=== PATIENT | female | born 1995 | race Caucasian/White ===

== ENCOUNTER 2018-10-15 16:36 | Emergency (ER) | payer BC, OTHER ==
[~2018-10-15] VITALS: Ht 160 cm; Wt 90.7 kg
--- OUTSIDE RECORDS SUMMARY | 2018-10-15 16:44 | XMS REPORT | Continuity of Care Document ---
Author Author [facility] Organization [facility] Address [facility] [address] [place] [address] Phone Unavailable Support Name Relationship Address Phone Leroy Bright MD Caregiver [address] [place] [address] Unavailable Sol Fan M.D. Caregiver [address] [facility] [address] [place] [address] SHOSHANA COWAN Next Of Kin Unknown Insurance Providers Payer Name Policy Number Subscriber Name Relationship Bc/Bs [place] [employer] [id number] Heather Pham 21 Child Advance Directives Directive Response Recorded Date/Time Do you have an Advanced Directive? No 11/27/00 10:40am Advance Directives No 05/18/14 3:48pm Living Will No 05/18/14 3:48pm Health Care Proxy No 08/26/14 9:25am Power of Pen Tender for Health Care No 05/18/14 3:48pm Organ, Tissue, or Eye Donor No 05/18/14 3:48pm Do you have a signed organ donor card? No 11/27/00 10:40am Problems No problem information available. Medications Current Home Medications Medication Dose Units Route Directions Days/Qty Instructions Start Date [Hydrocodone] Mg Oral Daily As Needed UNKNOWN DOSAGE PER MOTHER 05/18/14 Oxycodone Hcl/Acetaminophen* 1 Tab 1 Ea Oral Every 4-6 Hrs As Needed Pain 15 05/24/14 Social History Social History Problem Response Recorded Date/Time Smoking Status Never smoker 05/18/2014 3:48pm Query Response Start Date Stop Date Smoking Status Never smoker Hospital Discharge Instructions Current inpatient/outpatient. Discharge instructions are currently unavailable. Plan of Care Prescriptions Functional Status No functional status results. Allergies, Adverse Reactions, Alerts No known allergies. Immunizations Name Given Type Hx Influenza Vaccination Y FALL 2013. Historical Hx Pneumococcal Vaccination No Historical Vital Signs Acute Vital Signs Vital Response Date/Time Pain Intensity 0 07/07/2014 8:55am Pain Location Body Site Modifier 08/17/2014 1:00pm Results No known relevant diagnostic tests, laboratory data and/or discharge summary. Procedures Procedure Status Date Provider(s) X-ray of left knee, three views Active 07/04/14 Leroy Bright MD X-ray of both knees with standing anteroposterior view Active 07/04/14 Leroy Bright MD X-ray of left knee, three views Active 08/26/14 Leroy Bright MD X-ray of both knees with standing anteroposterior view Active 08/26/14 Leroy Bright MD Encounters Encounter Location Arrival/Admit Date Discharge/Depart Date Attending Provider Registered [facility] [place] 08/26/14 9:26am Leroy Bright MD Discharged Recur[facility] [place] 07/07/14 6:17am 09/05/14 3:00pm Leroy Bright MD Registered [facility] [place] 07/04/14 10:06am Leroy Bright MD
--- OUTSIDE RECORDS SUMMARY | 2018-10-15 16:44 | XMS REPORT ---
Author Author Deepa Damon [facility] Address [address] [place], [place] [id number] Care Team Providers Care Dispersion Mixer Name Role Phone Deepa Damon PCP Unavailable Allergies and Adverse Reactions Name Reaction Notes SULFA (SULFONAMIDE ANTIBIOTICS) Plan of Treatment Not available. Medications Active Name Start Date Estimated Completion Date SIG Comments Cipro 500 mg oral tablet take 1 tablet (500 mg) by oral route 2 times per day Problem List Not available. Vital Signs Date Time BP-Sys(mm[Hg] BP-Madison(mm[Hg]) HR(bpm) RR(rpm) Temp WT HT HC BMI BSA BMI Percentile O2 Sat(%) 08/24/2015 10:14:00 AM 102 mmHg 70 mmHg 98 bpm 20 rpm 98.3 F 172 lbs 63 in 30.47 kg/m2 1.86 m2 95 % 97 % Social History Name Description Comments Tobacco Never smoker Alcohol Never History of Procedures Date Ordered Description Order Status 08/24/2015 12:00 AM CULTURE SCREEN ONLY Returned 08/27/2015 9:40 AM STREP A ASSAY W/OPTIC Reviewed Results Summary Data and Description Results 08/27/2015 9:40 AM STREPTOCOCCUS, GROUP A CULTURE Negative History Of Immunizations Not available. History of Past Illness Name Date of Onset Comments No significant medical history Sore throat Aug 24 2015 10:16AM Viral pharyngitis Aug 24 2015 10:16AM Payers Insurance Name Company Name Plan Name Plan Number Policy Number Policy Group Number Start Date BCBS [facility] [id number] May History of Encounters Visit Date Visit Type Provider 08/24/2015 Office visit Deepa Damon ELECTORAL OFFICER
--- OUTSIDE RECORDS SUMMARY | 2018-10-15 16:44 | XMS REPORT ---
Author Author Deepa Damon [facility] Address [address] [place], [place] [id number] Care Team Providers Care Clerical Coordinator Name Role Phone Deepa Damon PCP Unavailable Allergies and Adverse Reactions Name Reaction Notes SULFA (SULFONAMIDE ANTIBIOTICS) Plan of Treatment Not available. Medications Discontinued Name Start Date Discontinued Date SIG Comments Cipro 500 mg oral tablet 09/21/2015 take 1 tablet (500 mg) by oral route 2 times per day Problem List Not available. Vital Signs Date Time BP-Sys(mm[Hg] BP-Madison(mm[Hg]) HR(bpm) RR(rpm) Temp WT HT HC BMI BSA BMI Percentile O2 Sat(%) 09/21/2015 2:33:00 PM 117 mmHg 73 mmHg 80 bpm 18 rpm 97.7 F 175.4 lbs 64 in 30.11 kg/m2 1.90 m2 94.6 % 98 % 08/24/2015 10:14:00 AM 102 mmHg 70 mmHg 98 bpm 20 rpm 98.3 F 172 lbs 63 in 30.4681 kg/m 1.8622 m 95 % 97 % Social History Name [...] 10:16AM Viral pharyngitis Aug 24 2015 10:16AM Sports Physical Sep 21 2015 2:35PM Payers Insurance Name Company Name Plan Name Plan Number Policy Number Policy Group Number [id number] May History of Encounters Visit Date Visit Type Provider 09/21/2015 Office visit Deepa Damon ORTHOTIST/PROSTHETIST 08/24/2015 Office visit Deepa Damon ORTHOTIST/PROSTHETIST
--- OUTSIDE RECORDS SUMMARY | 2018-10-15 16:45 | XMS REPORT | Continuity of Care Document ---
Author Organization Unknown Address Unknown Phone Unavailable Allergies Active Description Code Type Severity Reaction Onset Reported/Identified Relationship to Patient Clinical Status Yes SULFA Drug Allergy N/A N/A Yes SULFA Drug Allergy N/A N/A Medications Medication Packaging Start Date Stop Date Route Dosage Sig NORCO ORAL 05/11/2014 ORAL 1515 every 6 hours Problems There is no data. Procedures There is no data. Results There is no data. Encounters ACCT No. Visit Date/Time Discharge Status Pt. Type Provider Facility Loc./Unit Complaint [id number] 09/16/2017 12:23:25 09/16/2017 23:59:59 CLS Outpatient Talisha Vaughn [id number] 09/21/2015 15:15:56 09/21/2015 23:59:59 CLS Outpatient Deepa Damon [id number] 09/13/2014 06:07:37 09/13/2014 06:07:37 DIS Outpatient [id number] 10/26/2015 18:30:00 10/26/2015 18:30:00 DIS Outpatient [facility]
--- NOTE | 2018-10-15 16:53 | NUR ---
pt here with " room mate". pt alert gcs 15. approx 20 min. bell captain here pt cut self right middle finger while cutting twine. pt has a partial thickness minimal bleeding with direct pressur laceration right hand middle finger distal knuckle fat pad. last tetanus unk. per pt. done jacey pt at 1657.
--- NOTE | 2018-10-15 17:27 | ED Upper Extremity ---
General Chief Complaint: Laceration Stated Complaint: FINGER LACERATION Nursing Triage Note: right finger lac. Nursing Sepsis Screen: No Definite Risk Source: patient Exam Limitations: no limitations History of Present Illness Date Seen by Provider: Oct 15, 2018 Time Seen by Provider: 17:25 Initial Comments To ER with reports of a laceration to the radial side of the distal phalanx right middle finger. She is trying to cut some wine tonight slipped. 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 Onset: just prior to arrival Severity: moderate Pain/Injury Location: right 3rd finger Modifying Factors: Worse With Movement Allergies and Home Medications Patient Home Medication List Home Medication List Reviewed: Yes Review of Systems Constitutional: see HPI EENTM: see HPI Respiratory: no symptoms reported Cardiovascular: no symptoms reported Genitourinary: no symptoms reported Musculoskeletal: see HPI Skin: no symptoms reported Psychiatric/Neurological: No Symptoms Reported Past [id number] Hx Patient Social History Alcohol Use: Denies Use Recreational Drug Use: No Smoking Status: Never a Smoker Recent Foreign Travel: No Contact w/Someone Who Travel: No Recent Infectious Disease Expo: No Physical Abuse: No Sexual Abuse: No Immunizations Up To Date Tetanus Booster (TDap): Unknown Physical Exam Vital Signs Vital Signs - First Documented 10/15/18 16:53 Temp 98.0 Pulse 68 Resp 16 B/P (MAP) 120/78 (92) Pulse Ox 98 O2 Delivery Room Air Capillary Refill : Less Than 3 Seconds Height, Weight, BMI Height: 5'3.00" Weight: 200lbs. oz. 90.494005sa; BMI Method:Stated General Appearance: WD/WN, no apparent distress HEENT: PERRL/EOMI Respiratory: no respiratory distress, no accessory muscle use Shoulder: normal inspection, non-tender Elbow/Forearm: normal inspection, non-tender Hand: Right, laceration (1 cm V-shaped laceration to the radial side distal phalanx right middle finger with minimal active bleeding.) Procedures/Interventions Wound Location: Upper Extremities Wound Length (cm): 1 Wound's Depth, Shape: linear Wound Explored: clean Other Closure Supply: Wound Adhesive Progress/Results/Core Measures Results/Orders Vital Signs/I&O 10/15/18 16:53 Temp 98.0 Pulse 68 Resp 16 B/P (MAP) 120/78 (92) Pulse Ox 98 O2 Delivery Room Air Blood Pressure Mean: 92 Departure Impression Primary Impression: Finger laceration Qualified Codes: S61.212A - Laceration without foreign body of right middle finger without damage to nail, initial encounter Disposition: 01 HOME, SELF-CARE Condition: Stable Departure-Patient Inst. Referrals: NO,LOCAL PHYSICIAN (PCP/Family) Primary Care Physician Patient Instructions: Laceration Repair With Glue (DC) Add. Discharge Instructions: 1. You can shower allowing water run over the starting tonight but do not soak it in water such as a dish sink, hot tub bath tub or swimming pool or [place] until the glue falls off in about 5 days. Return to ER for any sign of infection such as redness or swelling. Do not apply any petroleum-based products like Vaseline, Neosporin or bacitracin as this will dissolve the glue prematurely. All discharge instructions reviewed with patient and/or family. Voiced understanding. HANNAH CARDOSO APRN Oct 15, 2018 17:27
--- NOTE | 2018-10-15 17:31 | NUR ---
did wound glue and a finger splint.
[2018-10-15 17:37] VITALS: BP 120/78
--- NOTE | 2018-10-15 17:37 | NUR ---
d/c instructions to pt. told to read all papers. no scripts given. pt left ambulatory with adult female. pt knows f/u. i went over the handtyped by information on the chart. pt had no iv.
== END 2018-10-15 17:37 | disposition home or self-care (01) ==
LOC: ER 16:37
DX: S61.212A Laceration without foreign body of right middle finger without damage to nail, initial encounter (principal); W26.8XXA Contact with other sharp object(s), not elsewhere classified, initial encounter
CPT/HCPCS: 12001

== ENCOUNTER → 2020-04-25 | Outpatient (CLI) | payer BC, OTHER ==
--- NOTE | 2020-04-25 12:55 | Diagnostic Imaging Report ---
INDICATION: anatomy survey TECHNIQUE: Multiple real-time grayscale images were obtained over the gravid uterus. COMPARISON: None FINDINGS: There is a single live intrauterine in the cephalic position. The placenta is anterior in location, and there is no evidence of previa or placental abruption. The heart rate is 153 beats per minute. The SHEKHAR measures 14.76 cm. Cervix measures approximately 3.8 cm. anatomy survey was performed and the following structures are visualized and normal: Stomach, four-chamber heart, intracranial contents, spine, umbilical cord insertion, three-vessel cord, lips/nose and all 4 extremities. There is mild prominence of the renal pelves on both sides. Due to advanced gestational age, the maternal adnexa are suboptimally evaluated. Biometrical measurements are as follows: Biparietal 4.45 cm, age 19 weeks 4 days. Head circumference 16.75 cm, age 19 weeks 3 days. Abdominal circumference 13.71 cm, age 19 weeks 1 days. Femur length 3.11 cm, age 19 weeks 5 days. Sonographic estimate age: 19 weeks 4 days. Sonographic estimated date of delivery: 09/15/2020. Estimated Weight: 290 gm (+/- 42 gm). LMP percentile: 16%. heart rate: 153 beats per minute. number: 1 of 1. IMPRESSION: 1. Single live intrauterine with estimated gestational age of 19 weeks and 4 days. 2. anatomy survey is normal with the exception of mildly dilated renal pelves on both sides. This could be physiologic. Consider attention on follow-up. 3. Normal SHEKHAR. Dictated by: Dictated on workstation # [id number]
== END ==
LOC: RAD 09:43
PROVIDERS: ATTEND Obstetrics & Gynecology
DX: Z34.92 Encounter for supervision of normal pregnancy, unspecified, second trimester (principal); Z3A.19 19 weeks gestation of pregnancy
CPT/HCPCS: 76805

== ENCOUNTER 2020-09-04 18:01 | Outpatient (CLI) | payer OTHER ==
[~2020-09-04] VITALS: Ht 160 cm; Wt 107.2 kg
[~2020-09-04 18:01] MED LIST: ACYC400T21 PO; PREN-142 PO
[2020-09-04 18:15] VITALS: BP 136/82
[2020-09-04 19:41] LABS: BILIRUBIN,URINE NEGATIVE (NEGATIVE); CLARITY,URINE CLEAR; COLOR,URINE YELLOW; GLUCOSE, URINE (UA) NEGATIVE (NEGATIVE); KETONES,URINE NEGATIVE (NEGATIVE); LEUKOCYTE ESTERASE ,URINE TRACE (NEGATIVE); NITRITE,URINE NEGATIVE (NEGATIVE); PROTEIN,URINE NEGATIVE (NEGATIVE)
[2020-09-04 19:49] LABS: BACTERIA,URINE TRACE /HPF; WBC,URINE 0-2 /HPF
[2020-09-04 19:50] LABS: AMORPHOUS SEDIMENT,UR FEW AMOR PHOSPHATE /LPF
--- NOTE | 2020-09-06 17:29 | Physician Query-Final Dx ---
MELANIE COLLIER 09/06/20 1729: Final Diagnosis Give Final Diagnosis Please give Final Diagnosis RIYA ALCALA DO 09/07/20 0730: Final Diagnosis Give Final Diagnosis Irregular Uterine contractions 38 week IUP UTI MELANIE COLLIER Sep 06, 2020 17:29 RIYA ALCALA DO Sep 07, 2020 07:30
== END 2020-09-04 20:10 | disposition home or self-care (01) ==
LOC: WSo 18:01 → LDRP 18:06 → WSo 20:10
PROVIDERS: ATTEND Obstetrics & Gynecology
DX: O62.9 Abnormality of forces of labor, unspecified (principal); Z3A.00 Weeks of gestation of pregnancy not specified
CPT/HCPCS: 81000; G0463; 99213

== ENCOUNTER 2020-09-07 14:34 | Inpatient (IN) | payer OTHER, MEDICAID ==
[2020-09-07] VITALS (41 sets, daily range): BP systolic 117–156; BP diastolic 57–89
[2020-09-07] MEDS ORDERED: AMPICILLIN FOR IV USE 2,000 MG in WATER (STERILE) FOR INJECTION 14.8 ML IV SCH (15:00)
[2020-09-07] MEDS ORDERED: D5 LR IV SOLUTION 1,000 ML IV ONE (15:00)
[2020-09-07] MEDS ORDERED: fentaNYL 2 mcg/ml BUPIVA 0.125 100 ML ONE (15:06)
[2020-09-07] MEDS ORDERED: OXYTOCIN PRE-MIX DRIP 500 ML IV SCH ×2 (15:15→21:15)
[2020-09-07] MEDS ORDERED: D5 LR IV SOLUTION 1,000 ML IV SCH (15:15)
[2020-09-07 15:26] LABS: BASOPHILS % (AUTO) 0 % (0-10); EOSINOPHILS % (AUTO) 0 % (0-10); HEMATOCRIT 38 % (35-52); LYMPHOCYTES # (AUTO) 1.6 10^3/uL (1.0-4.0); LYMPHOCYTES % (AUTO) 12 % (12-44); MEAN CORPUSCULAR HEMOGLOBIN 34 pg (25-34); MEAN CORPUSCULAR HGB CONC 34 g/dL (32-36); MEAN CORPUSCULAR VOLUME 100 fL (80-99); MEAN PLATELET VOLUME 9.4 fL (9.0-12.2); MONOCYTES # (AUTO) 1.1 10^3/uL (0.0-1.0); MONOCYTES % (AUTO) 8 % (0-12); NEUTROPHILS % (AUTO) 80 % (42-75); PLATELET COUNT 321 10^3/uL (130-400); WHITE BLOOD COUNT 13.7 10^3/uL (4.3-11.0)
[2020-09-07] MEDS ORDERED: fentaNYL INJ 100 MCG/2 ML AMP ONE (15:38)
[2020-09-07] MEDS ORDERED: BUPIVACAINE 0.25% 30 ML (SENSORCAINE) VIAL ONE (15:38)
--- NOTE | 2020-09-07 15:50 | History & Physical-OB ---
OB - Chief Complaint & HPI Date/Time Date of Admission: Date of Admission: 09/07/2020 Date seen by a Provider: Sep 07, 2020 Time Seen by a Provider: 15:47 Chief Complaint/History OB-Reason for Admission/Chief: Onset of Labor Hx : 1 Hx Para: 0 Expected Date of Delivery: Sep 12, 2020 Gestational Age in Weeks: 39 Gestational Age in Days: 2 Admission Nurse Assessment Rev: Yes History of Labs A neg Antibody neg RNI RPR NR HBsAg NR HIV NR GC neg GBS pos HSV pos Allergies and Home Medications Allergies Coded Allergies: Sulfa (Sulfonamide Antibiotics) (Verified Allergy, Mild, none, 08/21/20) patient family members with allergy, told pt to not take it Home Medications Acyclovir 400 Mg Tablet, 500 MG PO BID, (Reported) Patient Home Medication List Home Medication List Reviewed: Yes OB - History Hx of Present Care: Yes Ultrasounds: Normal mid trimester US Obstetrical Complications: None Medical Complications: None Patient Past Medical History HSV Social History/Family History 2nd Hand Smoke Exposure: No Immunizations Tetanus Booster (TDap): Unknown OB - Admission Exam Physical Exam HEENT: NCAT Heart: Rhythm Normal Lungs: Clear Abdomen: Gravid Extremities: Normal Reflexes: Normal Cervical Dilatation: 4cm Effacement: 75% Station: -2 Membranes: Ruptured Amniotic Fluid: Clear Heart Rate: 130's Accelerations: Accelerations Present Decelerations: No Decelerations Short Term Variability: Present Fci Variability: Average (6-25) Contractions on Admission: < 5 Minutes Apart Intensity: Mild Labs Laboratory Tests Test 09/07/20 15:15 Range/Units White Blood Count 13.7 H 4.3-11.0 10^3/uL Red Blood Count 3.83 3.80-5.11 10^6/uL Hemoglobin 13.0 11.5-16.0 g/dL Hematocrit 38 35-52 % Mean Corpuscular Volume 100 H 80-99 fL Mean Corpuscular Hemoglobin 34 25-34 pg Mean Corpuscular Hemoglobin Concent 34 32-36 g/dL Red Cell Distribution Width 12.0 10.0-14.5 % Platelet Count 321 130-400 10^3/uL Mean Platelet Volume 9.4 9.0-12.2 fL Immature Granulocyte % (Auto) 0 % Neutrophils (%) (Auto) 80 H 42-75 % Lymphocytes (%) (Auto) 12 12-44 % Monocytes (%) (Auto) 8 0-12 % Eosinophils (%) (Auto) 0 0-10 % Basophils (%) (Auto) 0 0-10 % Neutrophils # (Auto) 11.0 H 1.8-7.8 10^3/uL Lymphocytes # (Auto) 1.6 1.0-4.0 10^3/uL Monocytes # (Auto) 1.1 H 0.0-1.0 10^3/uL Eosinophils # (Auto) 0.0 0.0-0.3 10^3/uL Basophils # (Auto) 0.0 0.0-0.1 10^3/uL Immature Granulocyte # (Auto) 0.1 0.0-0.1 10^3/uL Percent Immature Platelet Fraction 2.1 0.0-7.6 % OB - Assessment/Plan/Diagnosis Assessment Assessment: active labor Admission Dx 25 yo @ 39 weeks Active labor SROM GBS pos HSV- on prophylaxis, no lesions Admission Status: Inpatient Order (span 2 midnights) Reason for Inpatient Admission: Active labor at 39 weeks Plan Plan: Expectant Management RIYA ALCALA DO Sep 07, 2020 15:50
[2020-09-07] MEDS ORDERED: LACTATED RINGERS 1,000 ML IV ONE ×2 (16:15)
[2020-09-07] MEDS ORDERED: EPIDURAL (fentaNYL 2 MCG/ML BUPIVA 0.125%)100 ML BAG EPI PRN (16:15)
[2020-09-07] MEDS ORDERED: NALOXONE 0.4 MG/ML 1 ML (NARCAN) VIAL IV PRN (16:15)
[2020-09-07] MEDS ORDERED: ONDANSETRON 4 MG/2 ML (SDV) Z0FRAN IV PRN (16:15)
[2020-09-07] MEDS ORDERED: fentaNYL INJ 100 MCG/2 ML AMP INJ ONE (16:15)
[2020-09-07 17:06] LABS: BILIRUBIN,URINE NEGATIVE (NEGATIVE); CLARITY,URINE SL CLOUDY; COLOR,URINE YELLOW; GLUCOSE, URINE (UA) NEGATIVE (NEGATIVE); KETONES,URINE NEGATIVE (NEGATIVE); LEUKOCYTE ESTERASE ,URINE NEGATIVE (NEGATIVE); NITRITE,URINE NEGATIVE (NEGATIVE); PROTEIN,URINE NEGATIVE (NEGATIVE)
[2020-09-07 17:15] LABS: BACTERIA,URINE FEW /HPF; WBC,URINE RARE /HPF
[2020-09-07 17:16] LABS: AMORPHOUS SEDIMENT,UR MOD AMOR URATES /LPF
[2020-09-07] MEDS ORDERED: AMPICILLIN FOR IV USE 1,000 MG in WATER (STERILE) FOR INJECTION 7.4 ML IV SCH (19:15)
[2020-09-07] MEDS ORDERED: WITCH HAZEL(TUCKS) 40 EA JAR TOP PRN (21:15)
[2020-09-07] MEDS ORDERED: BENZOCAINE/MENTHOL (DERMOPLAST) 56 ML CAN TP PRN (21:15)
[2020-09-07] MEDS ORDERED: HYDROcodone/APAP 5 MG/325 MG (LORTAB) TAB PO PRN (21:15)
[2020-09-07] MEDS ORDERED: TETANUS,DIPTH,PERTUSS P/F (BOOSTRIX) 0.5 ML VIAL IM ONE (21:15)
[2020-09-07] MEDS ORDERED: DIBUCAINE 1% OINTMENT 30 GM TUBE TOP PRN (21:15)
[2020-09-07] MEDS ORDERED: MEASLES,MUMPS,RUBELLA 1 EA INJ SQ ONE (21:15)
--- NOTE | 2020-09-07 21:17 | OB Labor & Delivery Record ---
L&D History Date of Service Date of Service: Sep 07, 2020 History Expected Date of Delivery: Sep 12, 2020 Gestational Age in Weeks: 39 Hx : 1 Hx Para: 0 Complications Events: Routine care Operative Indications (Cesarea: N/A-Vaginal Delivery Intrapartal Events: None L&D Stage1 Stage One Onset of Labor - Date: Sep 07, 2020 Monitors and Tracing Monitor Mode: External Heart Rate: 165 Monitor Accelerations: Uniform Monitor Decelerations: Variable Instrument Technician Variability: Average (6-10) Short Term Variability: Present Presentation: Vertex Vital Signs VS - Last 72 Hours, by Label 09/07/20 09/07/20 09/07/20 09/07/20 15:16 15:45 15:49 15:52 Temp 35.4 Pulse 71 95 90 94 Resp 18 18 18 18 B/P (MAP) 132/84 (100) 147/83 (104) 145/76 (99) 138/76 (96) Pulse Ox 100 97 O2 Delivery Room Air Room Air Room Air Room Air 09/07/20 09/07/20 09/07/20 09/07/20 15:55 15:58 16:01 16:04 Pulse 76 82 85 81 Resp 18 18 18 18 B/P (MAP) 136/67 (90) 144/76 (98) 126/71 (89) 120/67 (84) Pulse Ox 99 99 99 O2 Delivery Room Air Room Air Room Air Room Air 09/07/20 09/07/20 09/07/20 09/07/20 16:07 16:10 16:21 16:25 Pulse 89 88 82 82 Resp 18 18 18 18 B/P (MAP) 123/69 (87) 126/77 (93) 122/72 (89) 122/78 (93) Pulse Ox 97 99 99 97 O2 Delivery Room Air Room Air Room Air Room Air 09/07/20 09/07/20 09/07/20 09/07/20 16:31 16:36 16:42 16:46 Pulse 78 90 92 92 Resp 18 18 18 18 B/P (MAP) 126/76 (93) 121/72 (88) 129/80 (96) 136/83 (100) Pulse Ox 99 92 99 99 O2 Delivery Room Air Room Air Room Air Room Air 6/24/09/07/20 09/07/20 09/07/20 16:54 16:56 17:01 17:20 Temp 35.6 Pulse 83 94 87 87 Resp 18 18 18 18 B/P (MAP) 125/66 (85) 122/70 (87) 118/68 (85) 129/74 (92) Pulse Ox 99 99 99 O2 Delivery Room Air Room Air Room Air Room Air 09/07/20 09/07/20 09/07/20 09/07/20 17:35 17:50 18:04 18:20 Temp 35.8 Pulse 86 95 90 87 Resp 18 18 18 18 B/P (MAP) 120/72 (88) 127/80 (96) 122/73 (89) 117/69 (85) Pulse Ox 99 99 99 99 O2 Delivery Room Air Room Air Room Air Room Air 09/07/20 09/07/20 09/07/20 18:34 18:50 19:04 Pulse 95 86 86 Resp 18 18 18 B/P (MAP) 128/75 (92) 134/82 (99) 130/75 (93) Pulse Ox 100 99 99 O2 Delivery Room Air Room Air Room Air Rupture of Membranes Spontaneous Ruture of Membrane: Yes Amniotic Membrane Rupture Time: 1300 Amniotic Membrane Fluid Desc.: Clear Vaginal Bleeding Description: Normal Show Induction/Anesthesia Epidural Cath Placement - Time: 1551 Progress/Notes Patient admitted in active labor, GBS pos started on antibiotics. She was ruptured SROM on admission. After epidural obtained, she progressed to complete and + 1 station and felt urge to push, she had prolonged tachycardia at that point. L&D Stage2 Stage Two Stage II Date: Sep 07, 2020 Monitors and Tracing Monitor Mode: External Heart Rate: 165 Monitor Accelerations: Uniform Monitor Decelerations: Variable Intermediate Variability: Average (6-10) Short Term Variability: Present Position: Right Occiput Anterior Presentation: Vertex Cord Descript/Complications Cord Vessel Description: 3 Vessels Complications compound presentation with nuchal x 1, tight and had to deliver through nuchal. Delivery Type Delivery Method: Spontaneous Vaginal Anterior Shoulder: Left Episiotomy/Perineal Laceration Laceraction(s)/Extensions: Yes Episiotomy Description: Periurethral Extnsion/lac, Vaginal Extension/lac Degree (describe repair) 1st degree vaginal and periurethral lacerations repaired using 3-0 rapide in usual fashion. Condition of Infant Delivery 1 minute Comment: 8 5 minute Comment: 9 Notes Live female infant weight pending. Condition of Infant Condition of : Living Exam: No Observed Abnormalities Resuscitation Resuscitation: N/A - Spontaneous Resp L&D Stage3 Stage Three Stage III Date: Sep 07, 2020 Pictocin Pitocin Administration mu/min: 4 Pitocin ml/hr: 4 Pitocin Administration Comment: 30 mu wide open at delivery of placenta Placenta Delivery Placenta Delivery: Spontaneous Delivery Summary Summary Estimated blood loss (mL): 350 Attending at delivery: Riya Alcala DO Condition of Delivery Examined: Cervix Examined, Uterus Explored Post Hemorrhage: No Condition of Mother stable Condition of Infant (s) stable RIYA ALCALA DO Sep 07, 2020 21:17
--- NOTE | 2020-09-07 21:19 | Discharge Inst-Women's Service ---
Discharge Inst-Women's Serv Depart Medication/Instructions New, Converted or Re-Newed RX: RX on Chart Final Diagnosis PPD 2 NVD Problems Reviewed?: Yes Consults/Follow Up Additional Follow Up: Yes Orders/Referrals Dr. Alcala in 6 weeks Activity Activity: Activity as Tolerated Driving Instructions: No Driving for 1 Week NO SMOKING: NO SMOKING Nothing Inside Vagina: No Douching, No Springer, No Tampons Diet Discharge Diet: No Restrictions Symptoms to Report to : Bleeding Excessive, Pain Increased, Fever Over 101 Degrees F, Vaginal Bleeding Increase, Questions/Concerns For Any Problems or Questions: Contact Your Physician RIYA ALCALA DO Sep 07, 2020 21:19
[2020-09-07] MEDS ORDERED: DIBU30OI TOP (21:20)
[2020-09-07] MEDS ORDERED: ACHD5005 PO (21:20)
[2020-09-07] MEDS ORDERED: BENZ78AE5 TP (21:20)
[2020-09-07] MEDS ORDERED: DCS100C PO (21:20)
[2020-09-07] MEDS ORDERED: IBUP-844 PO (21:20)
[2020-09-08] MEDS: IBUPROFEN 600 MG (MOTRIN) TAB PO SCH ×4 (01:28→20:17)
[2020-09-08 02:30] VITALS: BP 113/59
[2020-09-08 05:51] LABS: BASOPHILS # (AUTO) 0.1 10^3/uL (0.0-0.1); BASOPHILS % (AUTO) 0 % (0-10); EOSINOPHILS % (AUTO) 0 % (0-10); HEMATOCRIT 34 % (35-52); HEMOGLOBIN 12.1 g/dL (11.5-16.0); LYMPHOCYTES # (AUTO) 1.7 10^3/uL (1.0-4.0); LYMPHOCYTES % (AUTO) 7 % (12-44); MEAN CORPUSCULAR HEMOGLOBIN 35 pg (25-34); MEAN CORPUSCULAR HGB CONC 36 g/dL (32-36); MEAN CORPUSCULAR VOLUME 99 fL (80-99); MEAN PLATELET VOLUME 9.3 fL (9.0-12.2); MONOCYTES # (AUTO) 2.3 10^3/uL (0.0-1.0); MONOCYTES % (AUTO) 9 % (0-12); NEUTROPHILS # (AUTO) 21.2 10^3/uL (1.8-7.8); NEUTROPHILS % (AUTO) 83 % (42-75); PLATELET COUNT 259 10^3/uL (130-400); WHITE BLOOD COUNT 25.5 10^3/uL (4.3-11.0)
[2020-09-08 06:04] VITALS: BP 100/57
[2020-09-08 06:37] LABS: BAND NEUTROPHILS 4 %; LYMPHOCYTES % (MANUAL) 6 %; MONOCYTES % (MANUAL) 13 %; NEUTROPHILS % (MANUAL) 77 %; RBC MORPH NORMAL
[2020-09-08 08:22] VITALS: BP 109/63
[2020-09-08] MEDS: PRENATAL VITAMIN 1 EA TAB PO SCH (08:22)
[2020-09-08] MEDS: FERROUS SULF 325 MG (IRON) TAB PO SCH (08:23)
[2020-09-08] MEDS: DOCUSATE SODIUM 100 MG (COLACE) CAP PO SCH ×2 (08:23→20:17)
--- NOTE | 2020-09-08 08:26 | Postpartum Progress Note ---
Note Note Day # 1 Subjective: Patient is without complaints. Ambulating, voiding. Tolerating a regular diet without nausea or vomiting. Normal lochia. Pain is well controlled with oral pain medications. Objective: Physical Exam: General - Alert and oriented, no apparent distress Abdomen - Soft, appropriately tender to palpation, non-distended, fundus firm at umbilicus Extremities - no edema, negative Vivian's bilaterally Assessment: PPD 1 NVD Plan: Routine care. Encourage breast feeding. Encourage ambulation. Ferrous sulfate supplementation. Plan for discharge tomorrow Vitals - Labs Vital Signs - I&O Vital Signs Date Time Temp Pulse Resp B/P (MAP) Pulse Ox O2 Delivery O2 Flow Rate FiO2 09/08/20 08:22 36.5 88 18 109/63 (78) 98 Room Air 09/08/20 06:04 36.6 88 18 100/57 (71) 98 Room Air 09/08/20 02:30 36.7 112 18 113/59 (77) 98 Room Air 09/07/20 22:49 122 18 132/57 (82) Room Air 09/07/20 22:18 120 18 125/66 (85) Room Air 09/07/20 22:03 126 18 120/58 (78) Room Air 09/07/20 22:00 122 18 124/59 (80) Room Air 09/07/20 21:45 36.7 122 18 125/59 (81) Room Air 09/07/20 21:30 37.6 126 18 131/89 (103) Room Air 09/07/20 21:15 117 18 142/67 (92) Room Air 09/07/20 21:00 125 18 148/58 (88) Room Air 09/07/20 20:47 Room Air 09/07/20 20:45 116 18 156/86 (109) Room Air 09/07/20 20:30 96 18 136/75 (95) 100 Non Rebreather 15.00 09/07/20 20:15 93 18 119/72 (88) Room Air 09/07/20 20:00 96 18 117/77 (90) Room Air 09/07/20 19:45 102 18 137/76 (96) 99 Room Air 09/07/20 19:30 37.8 86 18 129/71 (90) 99 Room Air 6/24/21 19:04 86 18 130/75 (93) 99 Room Air 09/07/20 18:50 86 18 134/82 (99) 99 Room Air 09/07/20 18:34 95 18 128/75 (92) 100 Room Air 09/07/20 18:20 87 18 117/69 (85) 99 Room Air 09/07/20 18:04 35.8 90 18 122/73 (89) 99 Room Air 09/07/20 17:50 95 18 127/80 (96) 99 Room Air 09/07/20 17:35 86 18 120/72 (88) 99 Room Air 09/07/20 17:20 87 18 129/74 (92) Room Air 09/07/20 17:01 35.6 87 18 118/68 (85) 99 Room Air 09/07/20 16:56 94 18 122/70 (87) 99 Room Air 09/07/20 16:54 83 18 125/66 (85) 99 Room Air 09/07/20 16:46 92 18 136/83 (100) 99 Room Air 09/07/20 16:42 92 18 129/80 (96) 99 Room Air 09/07/20 16:36 90 18 121/72 (88) 92 Room Air 09/07/20 16:31 78 18 126/76 (93) 99 Room Air 09/07/20 16:25 82 18 122/78 (93) 97 Room Air 09/07/20 16:21 82 18 122/72 (89) 99 Room Air 09/07/20 16:10 88 18 126/77 (93) 99 Room Air 09/07/20 16:07 89 18 123/69 (87) 97 Room Air 09/07/20 16:04 81 18 120/67 (84) Room Air 09/07/20 16:01 85 18 126/71 (89) 99 Room Air 09/07/20 15:58 82 18 144/76 (98) 99 Room Air 09/07/20 15:55 76 18 136/67 (90) 99 Room Air 09/07/20 15:52 94 18 138/76 (96) 97 Room Air 09/07/20 15:49 90 18 145/76 (99) Room Air 09/07/20 15:45 95 18 147/83 (104) 100 Room Air 09/07/20 15:16 35.4 71 18 132/84 (100) Room Air l I & O 09/08/20 07:00 Intake Total 2037.0 ml Balance 2037.0 ml Labs Laboratory Tests 09/07/20 15:15: White Blood Count 13.7H, Red Blood Count 3.83, Hemoglobin 13.0, Hematocrit 38, Mean Corpuscular Volume 100H, Mean Corpuscular Hemoglobin 34, Mean Corpuscular Hemoglobin Concent 34, Red Cell Distribution Width 12.0, Platelet Count 321, Mean Platelet Volume 9.4, Immature Granulocyte % (Auto) 0, Neutrophils (%) ( Auto) 80H, Lymphocytes (%) (Auto) 12, Monocytes (%) (Auto) 8, Eosinophils (%) (Auto) 0, Basophils (%) (Auto) 0, Neutrophils # (Auto) 11.0H, Lymphocytes # (Auto) 1.6, Monocytes # (Auto) 1.1H, Eosinophils # (Auto) 0.0, Basophils # (Auto) 0.0, Immature Granulocyte # (Auto) 0.1, Percent Immature Platelet Fraction 2.1 09/07/20 16:20: Urine Color YELLOW, Urine Clarity SL CLOUDY, Urine pH 7.0, Urine Specific [place] 1.025H, Urine Protein NEGATIVE, Urine Glucose (UA) NEGATIVE, Urine Ketones NEGATIVE, Urine Nitrite NEGATIVE, Urine Bilirubin NEGATIVE, Urine Urobilinogen 1.0, Urine Leukocyte Esterase NEGATIVE, Urine RBC (Auto) 1+H, Urine RBC 2-5H, Urine WBC RARE, Urine Squamous Epithelial Cells 2-5, Urine Crystals PRESENTH, Urine Amorphous Sediment MOD KEVEN URATESH, Urine Bacteria FEWH, Urine Casts NONE, Urine Mucus SMALLH, Urine Culture Indicated YES 09/08/20 05:20: White Blood Count 25.5H, Red Blood Count 3.45L, Hemoglobin 12.1, Hematocrit 34L, Mean Corpuscular Volume 99, Mean Corpuscular Hemoglobin 35H, Mean Corpuscular Hemoglobin Concent 36, Red Cell Distribution Width 12.2, Platelet Count 259, Mean Platelet Volume 9.3, Immature Granulocyte % (Auto) 1, Neutrophils (%) (Auto) 83H, Lymphocytes (%) (Auto) 7L, Monocytes (%) (Auto) 9, Eosinophils (%) (Auto) 0, Basophils (%) (Auto) 0, Neutrophils # (Auto) 21.2H, Lymphocytes # (Auto) 1.7, Monocytes # (Auto) 2.3H, Eosinophils # (Auto) 0.0, Basophils # (Auto) 0.1, Immature Granulocyte # (Auto) 0.3H, Neutrophils % (Manual) 77, Lymphocytes % (Manual) 6, Monocytes % (Manual) 13, Band Neutrophils 4, Blood Morphology Comment NORMAL RIYA ALCALA DO Sep 08, 2020 08:26
--- NOTE | 2020-09-08 10:32 | Anesthesia-Regional Post-Op ---
Regional Patient Condition Mental Status: Alert, Oriented x3 Circulation: Same as Pre-Op Headache: Absent Sensation: Full Recovery Motor Block: Absent Post Op Complications Complications None Follow Up Care/Instructions Patient Instructions None needed. Anesthesia/Patient Condition Patient is doing well, no complaints, stable vital signs, no apparent adverse anesthesia problems. No complications reported per nursing. KILLIAN ETIENNE CRNA Sep 08, 2020 10:32
[2020-09-08 12:39] VITALS: BP 123/59
[2020-09-08 16:50] VITALS: BP 114/61
[2020-09-08 20:16] VITALS: BP 112/73
[2020-09-08] MEDS: CATHETER FLUSH 10 ML SYR IV SCH ×2 (23:58)
[2020-09-09 00:45] VITALS: BP 118/68
[2020-09-09] MEDS: IBUPROFEN 600 MG (MOTRIN) TAB PO SCH ×3 (02:00→13:23)
[2020-09-09] MEDS: CATHETER FLUSH 10 ML SYR IV SCH ×2 (06:44)
[2020-09-09 08:40] VITALS: BP 129/81
[2020-09-09] MEDS: FERROUS SULF 325 MG (IRON) TAB PO SCH (08:43)
[2020-09-09] MEDS: DOCUSATE SODIUM 100 MG (COLACE) CAP PO SCH (08:44)
[2020-09-09] MEDS: PRENATAL VITAMIN 1 EA TAB PO SCH (08:44)
--- NOTE | 2020-09-09 10:08 | Postpartum Progress Note ---
Note Note Day # 2 Subjective: Patient is without complaints. Ambulating, voiding. Tolerating a regular diet without nausea or vomiting. Normal lochia. Pain is well controlled with oral pain medications. Objective: Physical Exam: General - Alert and oriented, no apparent distress Abdomen - Soft, appropriately tender to palpation, non-distended, fundus firm at umbilicus Extremities - no edema, negative Vivian's bilaterally Assessment: PPD 2 NVD Plan: Routine care. Encourage breast feeding. Encourage ambulation. Ferrous sulfate supplementation. Plan for discharge today Vitals - Labs Vital Signs - I&O Vital Signs Date Time Temp Pulse Resp B/P (MAP) Pulse Ox O2 Delivery O2 Flow Rate FiO2 09/09/20 08:40 36.4 88 16 129/81 (97) 98 Room Air 09/09/20 00:45 36.6 81 18 118/68 (85) 97 Room Air 09/08/20 20:44 Room Air 09/08/20 20:16 36.3 98 20 112/73 (86) 98 Room Air 09/08/20 16:50 36.9 100 18 114/61 (78) 96 Room Air 09/08/20 12:39 36.9 94 18 123/59 (80) 97 Room Air Labs Microbiology 09/07/20 Urine Culture - Final, Complete Strep agalactiae Group B RIYA ALCALA DO Sep 09, 2020 10:08
[2020-09-09 13:40] VITALS: BP 129/95
== END 2020-09-09 13:38 | disposition home or self-care (01) | DRG 807 ==
LOC: WSo 14:34 → LDRP 14:35 → WSo 14:53 → WS 09-08 01:00
PROVIDERS: ADMIT Obstetrics & Gynecology; ATTEND Obstetrics & Gynecology
PROC: 10E0XZZ Delivery of Products of Conception, External Approach (ICD-10-PCS; principal; 2020-09-07)
PROC: 0HQ9XZZ Repair Perineum Skin, External Approach (ICD-10-PCS; 2020-09-07)
DX: O99.824 Streptococcus B carrier state complicating childbirth (principal); Z37.0 Single live birth; Z3A.39 39 weeks gestation of pregnancy; O71.82 Other specified trauma to perineum and vulva; O70.0 First degree perineal laceration during delivery
CPT/HCPCS: 36415; 81000; 83033; 85007; 85025; 85027; 86850; 86900; 86901; 87088; 90707; 99212

== ENCOUNTER → 2022-11-22 | Outpatient (CLI) | payer OTHER ==
[~2022-11-22] MED LIST changes: +ACHD5005 PO; +BENZ78AE5 TP; +DIBU30OI TOP; +DOCU-239 PO; +IBUP-844 PO
--- NOTE | 2022-11-22 10:41 | Diagnostic Imaging Report ---
PROCEDURE: Pelvic comp/transvaginal sonogram. TECHNIQUE: Complete transabdominal and transvaginal pelvic ultrasound was performed. In addition, limited pelvic Doppler was performed. INDICATION: Dyspareunia and abnormal uterine bleeding. Uterus is retroverted measuring 7.0 x 4.5 x 5.8 cm. Endometrium is 16 mm in thickness. No myometrial mass is identified. Right ovary measures 3.0 x 1.0 x 1.6 cm and left ovary measures 2.5 x 1.5 x 2.3 cm. There is blood flow to both ovaries. No adnexal mass or free fluid is detected. IMPRESSION: Unremarkable transabdominal and transvaginal pelvic ultrasound with limited pelvic Doppler. Dictated by: Dictated on workstation # [id number]
== END ==
LOC: RAD 09:26
PROVIDERS: ATTEND Nurse Practitioner Women's Health
DX: N93.9 Abnormal uterine and vaginal bleeding, unspecified (principal)
CPT/HCPCS: 76830; 76856